=== PATIENT | male | born 1980 | race Hispanic/Latino ===

== ENCOUNTER 2018-03-05 23:26 | Emergency (ER) | payer OTHER ==
--- NOTE | 2018-03-06 00:28 | ER ---
Nurse's Notes [facility] Name: Preet Jim Age: 37 yrs Sex: Male : 1980 Arrival Date: 03/05/2018 Time: 23:32 Bed 25 Private MD: Diagnosis: Tinea pedis;Cellulitis and acute lymphangitis of other parts of limb-bilateral feet Presentation: 03/05 23:46 Presenting complaint: Patient states: I think I have a fungal infection on both of my la1 feet for the last 4 days. Transition of care: patient was not received from another setting of care. Onset of symptoms was March 05, 2018. Risk Assessment: Do you want to hurt yourself or someone else? Patient reports no desire to harm self or others. Initial Sepsis Screen: Does the patient meet any 2 criteria? No. Patient's initial sepsis screen is negative. Does the patient have a suspected source of infection? No. Patient's initial sepsis screen is negative. Care prior to arrival: None. 23:46 Method Of Arrival: Ambulatory la1 23:46 Acuity: TASIA 4 la1 Historical: - Allergies: 23:47 No Known Allergies; la1 - PMHx: 23:47 None; la1 - Immunization history:: Adult Immunizations up to date. - Social history:: Smoking status: Patient/guardian denies using tobacco. - Ebola Screening: : No symptoms or risks identified at this time. - Family history:: not pertinent. Screenin:55 Abuse screen: Denies threats or abuse. Nutritional screening: No deficits noted. la1 Tuberculosis screening: No symptoms or risk factors identified. Fall Risk None identified. Assessment: 23:54 General: Appears in no apparent distress. Behavior is calm, cooperative. Pain: la1 Complains of pain in right foot and left foot. Neuro: Level of Consciousness is awake, alert, obeys commands, Oriented to person, place, time, situation. Cardiovascular: Capillary refill < 3 seconds Patient's skin is warm and dry. Respiratory: Airway is patent Respiratory effort is even, unlabored, Respiratory pattern is regular, symmetrical. GI: No signs and/or symptoms were reported involving the gastrointestinal system. : No signs and/or symptoms were reported regarding the genitourinary system. Derm: Rash noted that is draining clear fluid, urticaria, on right foot and left foot. Vital Signs: 23:47 BP 131 / 89; Pulse 84; Resp 16; Temp 97.8; Pulse Ox 98% on R/A; Weight 99.79 kg; Height la1 5 ft. 7 in. (170.18 cm); 03/06 00:43 BP 128 / 74; Pulse 81; Resp 16; Pulse Ox 98% on R/A; la1 03/05 23:47 Body Mass Index 34.46 (99.79 kg, 170.18 cm) la1 ED Course: 03/05 23:32 Patient arrived in ED. radha 23:38 David De La Fuente, RN is Primary Nurse. la1 23:46 Triage completed. la1 23:48 Arm band placed on right wrist. la1 23:55 Call light in reach. la1 03/06 00:00 Hernán Cope MD is Attending Physician. [place] 00:26 Eddie Curtis MD is Referral Physician. [facility] 00:43 No provider procedures requiring assistance completed. Patient did not have IV access la1 during this emergency room visit. Administered Medications: 00:06 Not Given (Physician Discretion): NS 0.9% 1000 ml IV at 125 ml/hr continuous la1 00:37 Drug: Bactrim (160 mg-800 mg (DS) 1 tablet Route: PO; la1 00:38 Follow up: Response: No adverse reaction la1 00:37 Drug: Doxycycline 200 mg Route: PO; la1 00:37 Follow up: Response: No adverse reaction; Pain is decreased la1 Point of Care Testing: Blood Glucose: 00:18 Blood Glucose: 150 mg/dL; la1 Ranges: Outcome: 00:28 Discharge ordered by . [facility] 00:43 Discharged to home ambulatory. la1 00:43 Condition: stable 00:43 Discharge instructions given to patient, Instructed on discharge instructions, follow up and referral plans. Demonstrated understanding of instructions, follow-up care, medications, Prescriptions given X 4. 00:44 Patient left the ED. la1 Signatures: Hernán Cope MD MD cha Salyer, Edna es Attema, Lee, RN RN la1
--- NOTE | 2018-03-06 00:29 | EDPHYS ---
Physician Documentation [facility] Name: Preet Jim Age: 37 yrs Sex: Male : 1980 Arrival Date: 03/05/2018 Time: 23:32 Bed 25 Private MD: Hernán Wolfe HPI: 03/06 00:23 This 37 yrs old Male presents to ER via Ambulatory with complaints of F, Feet carolina infected. 00:23 The patient presents with decreased range of motion, an injury, pain, a rash, swelling, [place] tenderness. The complaints affect the right foot and left foot. Context: The problem was sustained at work. Onset: The symptoms/episode began/occurred 1 week(s) ago. Modifying factors: The symptoms are alleviated by elevating leg, remaining still, the symptoms are aggravated by movement, weight bearing. Associated signs and symptoms: The patient has no apparent associated signs or symptoms. The patient presents with pain, a rash, draining, erythematous, swelling, tenderness. Historical: - Allergies: 03/05 23:47 No Known Allergies; la1 - PMHx: 23:47 None; la1 - Immunization history:: Adult Immunizations up to date. - Social history:: Smoking status: Patient/guardian denies using tobacco. - Ebola Screening: : No symptoms or risks identified at this time. - Family history:: not pertinent. ROS: 03/06 00:23 Constitutional: Negative for fever, chills, and weight loss, Eyes: Negative for injury, [place] pain, redness, and discharge, ENT: Negative for injury, pain, and discharge, Neck: Negative for injury, pain, and swelling, Cardiovascular: Negative for chest pain, palpitations, and edema, Respiratory: Negative for shortness of breath, cough, wheezing, and pleuritic chest pain, Abdomen/GI: Negative for abdominal pain, nausea, vomiting, diarrhea, and constipation, Back: Negative for injury and pain, : Negative for injury, bleeding, discharge, and swelling, Skin: Negative for injury, rash, and discoloration, Neuro: Negative for headache, weakness, numbness, tingling, and seizure, Psych: Negative for depression, anxiety, suicide ideation, homicidal ideation, and hallucinations, Allergy/Immunology: Negative for hives, rash, and allergies, Endocrine: Negative for neck swelling, polydipsia, polyuria, polyphagia, and marked weight changes, Hematologic/Lymphatic: Negative for swollen nodes, abnormal bleeding, and unusual bruising. MS/extremity: Positive for decreased range of motion, erythema, pain, swelling, tenderness, of the right foot and left foot. Exam: 00:23 Constitutional: This is a well developed, well nourished patient who is awake, alert, [place] and in no acute distress. Head/Face: Normocephalic, atraumatic. Eyes: Pupils equal round and reactive to light, extra-ocular motions intact. Lids and lashes normal. Conjunctiva and sclera are non-icteric and not injected. Cornea within normal limits. Periorbital areas with no swelling, redness, or edema. ENT: Nares patent. No nasal discharge, no septal abnormalities noted. Tympanic membranes are normal and external auditory canals are clear. Oropharynx with no redness, swelling, or masses, exudates, or evidence of obstruction, uvula midline. Mucous membranes moist. Neck: Trachea midline, no thyromegaly or masses palpated, and no cervical lymphadenopathy. Supple, full range of motion without nuchal rigidity, or vertebral point tenderness. No Meningismus. Chest/axilla: Normal chest wall appearance and motion. Nontender with no deformity. No lesions are appreciated. Cardiovascular: Regular rate and rhythm with a normal S1 and S2. No gallops, murmurs, or rubs. Normal PMI, no JVD. No pulse deficits. Respiratory: Lungs have equal breath sounds bilaterally, clear to auscultation and percussion. No rales, rhonchi or wheezes noted. No increased work of breathing, no retractions or nasal flaring. Back: No spinal tenderness. No costovertebral tenderness. Full range of motion. Male : Normal genitalia with no discharge or lesions. Neuro: Awake and alert, GCS 15, oriented to person, place, time, and situation. Cranial nerves II-XII grossly intact. Motor strength 5/5 in all extremities. Sensory grossly intact. Cerebellar exam normal. Normal gait. Psych: Awake, alert, with orientation to person, place and time. Behavior, mood, and affect are within normal limits. 00:23 Skin: Appearance: Temperature: warm, Moisture: petechiae, not noted, ecchymosis, not noted, swelling, cellulitis, that is minimal, confluent, on the right foot and left foot. Vital Signs: 03/05 23:47 BP 131 / 89; Pulse 84; Resp 16; Temp 97.8; Pulse Ox 98% on R/A; Weight 99.79 kg; Height la1 5 ft. 7 in. (170.18 cm); 03/06 00:43 BP 128 / 74; Pulse 81; Resp 16; Pulse Ox 98% on R/A; la1 03/05 23:47 Body Mass Index 34.46 (99.79 kg, 170.18 cm) [facility] MDM: 00:01 Patient medically screened. [facility] 00:26 Data reviewed: vital signs, nurses notes, lab test result(s), blood glucose, 150mg/dl. [facility] 03/06 00:22 Order name: Blood Glucose Level; Complete Time: 00:22 [facility] Administered Medications: 00:06 Not Given (Physician Discretion): NS 0.9% 1000 ml IV at 125 ml/hr continuous la1 00:37 Drug: Bactrim (160 mg-800 mg (DS) 1 tablet Route: PO; la1 00:38 Follow up: Response: No adverse reaction la1 00:37 Drug: Doxycycline 200 mg Route: PO; la1 00:37 Follow up: Response: No adverse reaction; Pain is decreased la1 Point of Care Testing: Blood Glucose: 00:18 Blood Glucose: 150 mg/dL; la1 Ranges: Critical Glucose Levels:Adult <50 mg/dl or >400 mg/dl <40 mg/dl or >180 mg/dl Disposition: 03/06/18 00:28 Discharged to Home. Impression: Tinea pedis, Cellulitis and acute lymphangitis of other parts of limb - bilateral feet. - Condition is Stable. - Discharge Instructions: Athlete's Foot, Athlete's Foot, [id number], Cellulitis, Adult, [id number]. - Prescriptions for Benadryl 25 mg Oral Capsule - take 1 capsule by ORAL route every 6 hours As needed; 30 tablet. Doxycycline Hyclate 100 mg Oral Tablet - take 1 tablet by ORAL route every 12 hours; 20 tablet. Nystatin- Triamcinolone 100,000-0.1 unit/g-% Topical Cream - apply 1 application by TOPICAL route 2 times per day; 60 gram. Bactrim DS 800- 160 mg Oral Tablet - take 1 tablet by ORAL route every 12 hours for 10 days; 20 tablet. - Medication Reconciliation Form, Thank You Letter, Antibiotic Education, Prescription Opioid Use, Work release form form. - Follow up: Private Physician; When: 2 - 3 days; Reason: Recheck today's complaints, Continuance of care, Re-evaluation by your physician. Follow up: Eddie Curtis MD; When: 2 - 3 days; Reason: Recheck today's complaints, Continuance of care, Re-evaluation by your physician. - Problem is new. - Symptoms have improved. Signatures: Dispatcher [employer] [facility] Hernán Cope MD MD cha Attema, Lee RN RN la1 Corrections: (The following items were deleted from the chart) 00:05 00:01 Cardiac monitoring ordered. [place] [address] 00:05 00:01 EKG - Nurse/Tech ordered. [place] [address] 00:05 00:01 IV Saline Lock ordered. [place] [address] 00:05 00:01 Urine Dipstick-Ancillary ordered. [place] [address] 00:06 00:01 Labs collected and sent ordered. [place] [address] 00:06 00:01 Oxygen Per Protocol ordered. [place] [address] 00:06 00:01 O2 Sat Monitoring ordered. [place] [address] 00:15 00:03 CBC+H.LAB.BRZ ordered. [facility] 00:15 00:03 PROTIME (+INR)+COAG.LAB.BRZ ordered. [facility] 00:15 00:03 Procalcitonin+C.LAB.BRZ ordered. [facility] 00:15 00:08 Urine Culture ordered. [facility] 00:15 00:09 Blood Culture ordered. [facility] 00:17 00:03 BASIC METABOLIC PANEL+C.LAB.BRZ ordered. [facility] 00:17 00:03 HEPATIC FUNCTION+C.LAB.BRZ ordered. [facility] 00:17 00:03 MAGNESIUM+C.LAB.BRZ ordered. [facility] 00:17 00:03 PROBNP+C.LAB.BRZ ordered. [facility] 00:17 00:03 TROPONIN (EMERG DEPT USE ONLY)+C.LAB.BRZ ordered. [facility] 00:17 00:03 LIPASE+C.LAB.BRZ ordered. [facility] 00:44 00:28 03/06/2018 00:28 Discharged to Home. Impression: Tinea pedis; Cellulitis and la1 acute lymphangitis of other parts of limb - bilateral feet. Condition is Stable. Forms are Medication Reconciliation Form, Thank You Letter, Antibiotic Education, Prescription Opioid Use. Follow up: Private Physician; When: 2 - 3 days; Reason: Recheck today's complaints, Continuance of care, Re-evaluation by your physician. Follow up: Eddie Curtis; When: 2 - 3 days; Reason: Recheck today's complaints, Continuance of care, Re-evaluation by your physician. Problem is new. Symptoms have improved. [place]
[2018-03-06] MEDS ORDERED: SMZ./TMP. 800/160 MG TABLET ONE (00:42)
[2018-03-06] MEDS ORDERED: DOXYCYCLINE 100 MG CAP PO ONE (00:42)
[2018-03-06] MEDS ORDERED: NA CHLORIDE 0.9% 1,000 ML ONE (01:38)
[2018-03-06 11:11] VITALS: TEMP 97.8; O2SAT 98
[2018-03-06 11:12] VITALS: BP 128/74
== END 2018-03-06 00:44 | disposition home or self-care (01) ==
LOC: ER 23:26
DX: B35.3 Tinea pedis (principal); L03.116 Cellulitis of left lower limb; L03.115 Cellulitis of right lower limb; L03.126 Acute lymphangitis of left lower limb; L03.125 Acute lymphangitis of right lower limb
CPT/HCPCS: 82962; 99283; J7030